=== PATIENT | female | born 1995 | race Caucasian/White ===

== ENCOUNTER 2016-08-27 18:13 | Emergency (ER) | payer MEDICAID, OTHER ==
[~2016-08-27] VITALS: Ht 157.5 cm; Wt 85.0 kg
[~2016-08-27 18:13] MED LIST: VENL150T14 PO
[2016-08-27 18:15] VITALS: BP 118/78; PULSE 124; RESP 20; TEMP 99.9; O2SAT 97
[2016-08-27] MEDS ORDERED: SODIUM CHLOR 0.9% 1000 ML INJ 1,000 ML IV SCH (18:20)
[2016-08-27 18:25] VITALS: BP 132/80; PULSE 115; RESP 16; O2SAT 98
[2016-08-27] MEDS ORDERED: ACETAMINOPHEN 500 MG CPLT PO ONE (18:30)
[2016-08-27] MEDS ORDERED: ONDANSETRON HCL 4 MG/2 ML VIAL IVP ONE (18:30)
[2016-08-27] MEDS ORDERED: SODIUM CHLORIDE 0.9% FLUSH 5 ML FLUSH IVF PRN (18:30)
[2016-08-27] MEDS ORDERED: KETOROLAC TROMETHAMINE 30 MG/ML (IVP) VIAL IVP ONE (18:30)
--- NOTE | 2016-08-27 18:31 | PD ---
HPI Chief Complaint: Cold / Flu Symptoms Time Seen by Provider: 18:19 Travel History International Travel<30 days: No Contact w/Intl Traveler<30days: No Traveled to known affect area: No History of Present Illness HPI 21-year-old female here with complaint of flulike symptoms. Patient states that she has been ill since . Generalized body aches, malaise. Dry nonproductive cough. Over the last 24 hours symptoms have worsened now with small volume urination, right sided flank pain and fevers up to 103. Nausea, no vomiting. No recent travel, sick contacts. Notes a slight amount of radiation of the right flank pain into the right upper quadrant. Denies any known history of hepatobiliary pathology. PFSH Past Medical History Heart Rhythm Problems: Yes (SVT) Cancer: No Cardiovascular Problems: No Diabetes: No Headaches: No Psychiatric: Yes (depression) Seizures: No ?: Not Past Surgical History Surgical History: No Previous Surgery Social History Alcohol Use: Yes Tobacco Use: Yes Substance Use: No Allergies-Medications (Allergen,Severity, Reaction): Uncoded Allergies: PYRETHRIN (Allergy, Severe, ANAPHYLAXIS, 08/27/16) Reported Meds & Prescriptions Reported Meds & Active Scripts Active No Active Prescriptions or Reported Medications Review of Systems Except as stated in HPI: all other systems reviewed are Neg Physical Exam Narrative GENERAL: Young female in no acute distress SKIN: Warm and dry. HEAD: Normocephalic. EYES: No scleral icterus. No injection or drainage. ENT: Mucous membranes pink and moist. NECK: Supple CARDIOVASCULAR: Tachycardic with heart rate in the 110s, regular rhythm. No murmur appreciated. RESPIRATORY: No accessory muscle use. Clear to auscultation. Breath sounds equal bilaterally. GASTROINTESTINAL: Abdomen soft, right sided CVA tenderness with minimal right upper quadrant tenderness to palpation without rebound or guarding MUSCULOSKELETAL: Normal gait NEUROLOGICAL: Awake and alert. Normal speech. PSYCHIATRIC: Appropriate mood and affect; insight and judgment normal. Data Data Last Documented VS Vital Signs Date Time Temp Pulse Resp B/P Pulse Ox O2 Delivery O2 Flow Rate FiO2 08/27/16 18:25 115 16 132/80 98 Room Air 08/27/16 18:15 99.9 Orders Urinalysis - C+S If Indicated (08/27/16 18:20) Influenzae A/B Antigen (08/27/16 18:20) Iv Access Insert/Monitor (08/27/16 18:20) Oximetry (08/27/16 18:20) Ondansetron Inj (Zofran Inj) (08/27/16 18:30) Sodium Chlor 0.9% 1000 Ml Inj (Ns 1000 M (08/27/16 18:20) Sodium Chloride 0.9% Flush (Ns Flush) (08/27/16 18:30) Ketorolac Inj (Toradol Inj) (08/27/16 18:30) Acetaminophen (Tylenol) (08/27/16 18:30) Complete Blood Count With Diff (08/27/16 18:28) Comprehensive Metabolic Panel (08/27/16 18:28) Lipase (08/27/16 18:28) Sodium Chlor 0.9% 1000 Ml Inj (Ns 1000 M (08/27/16 18:45) Labs Laboratory Tests Test 08/27/16 18:35 White Blood Count 3.6 TH/MM3 Red Blood Count 4.95 MIL/MM3 Hemoglobin 15.7 GM/DL Hematocrit 44.5 % Mean Corpuscular Volume 89.9 FL Mean Corpuscular Hemoglobin 31.7 PG Mean Corpuscular Hemoglobin 35.3 % Concent Red Cell Distribution Width 12.7 % Platelet Count 165 TH/MM3 Mean Platelet Volume 10.3 FL Neutrophils (%) (Auto) 44.1 % Lymphocytes (%) (Auto) 43.6 % Monocytes (%) (Auto) 11.2 % Eosinophils (%) (Auto) 0.7 % Basophils (%) (Auto) 0.4 % Neutrophils # (Auto) 1.6 TH/MM3 Lymphocytes # (Auto) 1.6 TH/MM3 Monocytes # (Auto) 0.4 TH/MM3 Eosinophils # (Auto) 0.0 TH/MM3 Basophils # (Auto) 0.0 TH/MM3 CBC Comment DIFF FINAL Differential Comment Urine Color YELLOW Urine Turbidity HAZY Urine pH 5.5 Urine Specific [place] 1.017 Urine Protein NEG mg/dL Urine Glucose (UA) NEG mg/dL Urine Ketones NEG mg/dL Urine Occult Blood SMALL Urine Nitrite NEG Urine Bilirubin NEG Urine Urobilinogen LESS THAN 2.0 MG/DL Urine Leukocyte Esterase NEG Urine RBC 1 /hpf Urine WBC 1 /hpf Urine Squamous Epithelial 6 /hpf Cells Microscopic Urinalysis Comment CULT NOT INDICATED Sodium Level 136 MEQ/L Potassium Level 3.9 MEQ/L Chloride Level 102 MEQ/L Carbon Dioxide Level 28.6 MEQ/L Anion Gap 5 MEQ/L Blood Urea Nitrogen 11 MG/DL Creatinine 1.04 MG/DL Estimat Glomerular Filtration 66 ML/MIN Rate Random Glucose 86 MG/DL Calcium Level 8.3 MG/DL Aspartate Amino Transf 19 U/L (AST/SGOT) Albumin 3.6 GM/DL Lipase 312 U/L [facility] Medical Decision Making Medical Screen Exam Complete: Yes Emergency Medical Condition: Yes Medical Record Reviewed: Yes Differential Diagnosis 21-year-old female here with approximately 2 weeks of generalized body aches, fatigue, dry nonproductive cough worsening over the last 24 hours with right sided flank pain and urinary symptoms. Differential includes viral syndrome, influenza, UTI, pyelonephritis, ureterolithiasis, basilar pneumonia, hepatobiliary pathology, pancreatitis. Narrative Course Patient placed on monitor, IV established and blood obtained. Given 30 mg Toradol, 4 mg Zofran, 2 L normal saline bolus. CBC, CMP, lipase, urinalysis, influenza obtained and pending at the time this dictation. Patient signed out to oncoming provider waiting results of same. Scripts No Active Prescriptions or Reported Meds Jodi Fitzgerald MD Aug 27, 2016 18:31
[2016-08-27] MEDS ORDERED: SODIUM CHLOR 0.9% 1000 ML INJ 1,000 ML IV ONE ×2 (18:45→19:45)
[2016-08-27 18:47] LABS: AUTOMATED NEUTROPHIL # 1.6 TH/MM3 (1.8-7.7); BASOPHIL % 0.4 % (0.0-2.0); EOSINOPHIL % 0.7 % (0.0-4.0); HEMATOCRIT 44.5 % (35.0-46.0); HEMO FLAGS DIFF FINAL; LYMPH % 43.6 % (9.0-44.0); LYMPHOCYTE # 1.6 TH/MM3 (1.0-4.8); MEAN CELL VOLUME 89.9 FL (80.0-100.0); MEAN CORPUSCULAR HEMOGLOBIN 31.7 PG (27.0-34.0); MEAN CORPUSCULAR HGB CONC 35.3 % (32.0-36.0); MONO % 11.2 % (0.0-8.0); NEUT % 44.1 % (16.0-70.0); PLATELET COUNT 165 TH/MM3 (150-450); RED BLOOD COUNT 4.95 MIL/MM3 (4.00-5.30); RED CELL DISTRIBUTION WIDTH 12.7 % (11.6-17.2); WHITE BLOOD COUNT 3.6 TH/MM3 (4.0-11.0)
[2016-08-27 18:49] LABS: BLOOD, URINE SMALL (NEG); COMMENT (UR) CULT NOT INDICATED; CULTURE IF INDICATED CULT NOT INDICATED; GLUCOSE,URINE NEG (NEG); KETONE, URINE NEG (NEG); NITRITE,URINE NEG (NEG); PH, URINE 5.5 (5.0-8.5); SQUAMOUS EPITHELIAL CELL URINE 6 /hpf (0-5); URINE COLOR YELLOW (YELLW/STRAW)
[2016-08-27 19:00] LABS: ANION GAP 5 MEQ/L (5-15); AST (GOT) 19 U/L (15-37); BICARBONATE 28.6 MEQ/L (21.0-32.0); BLOOD UREA NITROGEN 11 MG/DL (7-18); CHLORIDE 102 MEQ/L (98-107); GLOMERULAR FILTRATION RATE 66 ML/MIN (>89); POTASSIUM 3.9 MEQ/L (3.5-5.1); SODIUM (NA) 136 MEQ/L (136-145)
[2016-08-27 19:01] VITALS: BP 133/79; PULSE 104; RESP 18; O2SAT 96
[2016-08-27 19:04] LABS: ALKALINE PHOSPHATASE 61 U/L (45-117); ALT (GPT) 20 U/L (10-53); TOTAL BILIRUBIN ADULT 0.2 MG/DL (0.2-1.0)
--- NOTE | 2016-08-27 19:31 | PD ---
Physical Exam Date Seen by Provider: Aug 27, 2016 Data Data Last Documented VS Vital Signs Date Time Temp Pulse Resp B/P Pulse Ox O2 Delivery O2 Flow Rate FiO2 08/27/16 19:58 80 18 129/70 95 08/27/16 19:01 Room Air 08/27/16 18:15 99.9 Orders Urinalysis - C+S If Indicated (08/27/16 18:20) Influenzae A/B Antigen (08/27/16 18:20) Iv Access Insert/Monitor (08/27/16 18:20) Oximetry (08/27/16 18:20) Ondansetron Inj (Zofran Inj) (08/27/16 18:30) Sodium Chlor 0.9% 1000 Ml Inj (Ns 1000 M (08/27/16 18:20) Sodium Chloride 0.9% Flush (Ns Flush) (08/27/16 18:30) Ketorolac Inj (Toradol Inj) (08/27/16 18:30) Acetaminophen (Tylenol) (08/27/16 18:30) Complete Blood Count With Diff (08/27/16 18:28) Comprehensive Metabolic Panel (08/27/16 18:28) Lipase (08/27/16 18:28) Sodium Chlor 0.9% 1000 Ml Inj (Ns 1000 M (08/27/16 18:45) Ct Abd/Pel W/O Iv Contrast (08/27/16 19:14) Chest, Single Ap (08/27/16 19:14) Ed Urine Pregnancytest Poc (08/27/16 19:14) Labs Laboratory Tests Test 08/27/16 18:35 White Blood Count 3.6 TH/MM3 Red Blood Count 4.95 MIL/MM3 Hemoglobin 15.7 GM/DL Hematocrit 44.5 % Mean Corpuscular Volume 89.9 FL Mean Corpuscular Hemoglobin 31.7 PG Mean Corpuscular Hemoglobin 35.3 % Concent Red Cell Distribution Width 12.7 % Platelet Count 165 TH/MM3 Mean Platelet Volume 10.3 FL Neutrophils (%) (Auto) 44.1 % Lymphocytes (%) (Auto) 43.6 % Monocytes (%) (Auto) 11.2 % Eosinophils (%) (Auto) 0.7 % Basophils (%) (Auto) 0.4 % Neutrophils # (Auto) 1.6 TH/MM3 Lymphocytes # (Auto) 1.6 TH/MM3 Monocytes # (Auto) 0.4 TH/MM3 Eosinophils # (Auto) 0.0 TH/MM3 Basophils # (Auto) 0.0 TH/MM3 CBC Comment DIFF FINAL Differential Comment Urine Color YELLOW Urine Turbidity HAZY Urine pH 5.5 Urine Specific [place] 1.017 Urine Protein NEG mg/dL Urine Glucose (UA) NEG mg/dL Urine Ketones NEG mg/dL Urine Occult Blood SMALL Urine Nitrite NEG Urine Bilirubin NEG Urine Urobilinogen LESS THAN 2.0 MG/DL Urine Leukocyte Esterase NEG Urine RBC 1 /hpf Urine WBC 1 /hpf Urine Squamous Epithelial 6 /hpf Cells Microscopic Urinalysis Comment CULT NOT INDICATED Sodium Level 136 MEQ/L Potassium Level 3.9 MEQ/L Chloride Level 102 MEQ/L Carbon Dioxide Level 28.6 MEQ/L Anion Gap 5 MEQ/L Blood Urea Nitrogen 11 MG/DL Creatinine 1.04 MG/DL Estimat Glomerular Filtration 66 ML/MIN Rate Random Glucose 86 MG/DL Calcium Level 8.3 MG/DL Total Bilirubin 0.2 MG/DL Aspartate Amino Transf 19 U/L (AST/SGOT) Alanine Aminotransferase 20 U/L (ALT/SGPT) Alkaline Phosphatase 61 U/L Total Protein 7.6 GM/DL Albumin 3.6 GM/DL Lipase 312 U/L MDM Supervised Visit with WILLY: No Interpretation(s) Vital Signs Date Time Temp Pulse Resp B/P Pulse Ox O2 Delivery O2 Flow Rate FiO2 08/27/16 19:01 104 18 133/79 96 Room Air 08/27/16 18:25 115 16 132/80 98 Room Air 08/27/16 18:15 99.9 124 20 118/78 97 Room Air Laboratory Tests Test 08/27/16 18:35 White Blood Count 3.6 TH/MM3 (4.0-11.0) Red Blood Count 4.95 MIL/MM3 (4.00-5.30) Hemoglobin 15.7 GM/DL (11.6-15.3) Hematocrit 44.5 % (35.0-46.0) Mean Corpuscular Volume 89.9 FL (80.0-100.0) Mean Corpuscular Hemoglobin 31.7 PG (27.0-34.0) Mean Corpuscular Hemoglobin 35.3 % Concent (32.0-36.0) Red Cell Distribution Width 12.7 % (11.6-17.2) Platelet Count 165 TH/MM3 (150-450) Mean Platelet Volume 10.3 FL (7.0-11.0) Neutrophils (%) (Auto) 44.1 % (16.0-70.0) Lymphocytes (%) (Auto) 43.6 % (9.0-44.0) Monocytes (%) (Auto) 11.2 % (0.0-8.0) Eosinophils (%) (Auto) 0.7 % (0.0-4.0) Basophils (%) (Auto) 0.4 % (0.0-2.0) Neutrophils # (Auto) 1.6 TH/MM3 (1.8-7.7) Lymphocytes # (Auto) 1.6 TH/MM3 (1.0-4.8) Monocytes # (Auto) 0.4 TH/MM3 (0-0.9) Eosinophils # (Auto) 0.0 TH/MM3 (0-0.4) Basophils # (Auto) 0.0 TH/MM3 (0-0.2) CBC Comment DIFF FINAL Differential Comment Urine Color YELLOW (YELLW/STRAW) Urine Turbidity HAZY (CLEAR) Urine pH 5.5 (5.0-8.5) Urine Specific [place] 1.017 (1.002-1.035) Urine Protein NEG mg/dL (NEG-TRACE) Urine Glucose (UA) NEG mg/dL (NEG) Urine Ketones NEG mg/dL (NEG) Urine Occult Blood SMALL (NEG) Urine Nitrite NEG (NEG) Urine Bilirubin NEG (NEG) Urine Urobilinogen LESS THAN 2.0 MG/DL (LESS THAN 2.0) Urine Leukocyte Esterase NEG (NEG) Urine RBC 1 /hpf (0-3) Urine WBC 1 /hpf (0-5) Urine Squamous Epithelial 6 /hpf (0-5) Cells Microscopic Urinalysis Comment CULT NOT INDICATED Sodium Level 136 MEQ/L (136-145) Potassium Level 3.9 MEQ/L (3.5-5.1) Chloride Level 102 MEQ/L (98-107) Carbon Dioxide Level 28.6 MEQ/L (21.0-32.0) Anion Gap 5 MEQ/L (5-15) Blood Urea Nitrogen 11 MG/DL (7-18) Creatinine 1.04 MG/DL (0.50-1.00) Estimat Glomerular Filtration 66 ML/MIN (>89) Rate Random Glucose 86 MG/DL (74-106) Calcium Level 8.3 MG/DL (8.5-10.1) Total Bilirubin 0.2 MG/DL (0.2-1.0) Aspartate Amino Transf 19 U/L (15-37) (AST/SGOT) Alanine Aminotransferase 20 U/L (10-53) (ALT/SGPT) Alkaline Phosphatase 61 U/L (45-117) Total Protein 7.6 GM/DL (6.4-8.2) Albumin 3.6 GM/DL (3.4-5.0) Lipase 312 U/L (73-393) Laboratory Tests Test 08/27/16 18:35 White Blood Count 3.6 TH/MM3 (4.0-11.0) Red Blood Count 4.95 MIL/MM3 (4.00-5.30) Hemoglobin 15.7 GM/DL (11.6-15.3) Hematocrit 44.5 % (35.0-46.0) Mean Corpuscular Volume 89.9 FL (80.0-100.0) Mean Corpuscular Hemoglobin 31.7 PG (27.0-34.0) Mean Corpuscular Hemoglobin 35.3 % Concent (32.0-36.0) Red Cell Distribution Width 12.7 % (11.6-17.2) Platelet Count 165 TH/MM3 (150-450) Mean Platelet Volume 10.3 FL (7.0-11.0) Neutrophils (%) (Auto) 44.1 % (16.0-70.0) Lymphocytes (%) (Auto) 43.6 % (9.0-44.0) Monocytes (%) (Auto) 11.2 % (0.0-8.0) Eosinophils (%) (Auto) 0.7 % (0.0-4.0) Basophils (%) (Auto) 0.4 % (0.0-2.0) Neutrophils # (Auto) 1.6 TH/MM3 (1.8-7.7) Lymphocytes # (Auto) 1.6 TH/MM3 (1.0-4.8) Monocytes # (Auto) 0.4 TH/MM3 (0-0.9) Eosinophils # (Auto) 0.0 TH/MM3 (0-0.4) Basophils # (Auto) 0.0 TH/MM3 (0-0.2) CBC Comment DIFF FINAL Differential Comment Urine Color YELLOW (YELLW/STRAW) Urine Turbidity HAZY (CLEAR) Urine pH 5.5 (5.0-8.5) Urine Specific [place] 1.017 (1.002-1.035) Urine Protein NEG mg/dL (NEG-TRACE) Urine Glucose (UA) NEG mg/dL (NEG) Urine Ketones NEG mg/dL (NEG) Urine Occult Blood SMALL (NEG) Urine Nitrite NEG (NEG) Urine Bilirubin NEG (NEG) Urine Urobilinogen LESS THAN 2.0 MG/DL (LESS THAN 2.0) Urine Leukocyte Esterase NEG (NEG) Urine RBC 1 /hpf (0-3) Urine WBC 1 /hpf (0-5) Urine Squamous Epithelial 6 /hpf (0-5) Cells Microscopic Urinalysis Comment CULT NOT INDICATED Sodium Level 136 MEQ/L (136-145) Potassium Level 3.9 MEQ/L (3.5-5.1) Chloride Level 102 MEQ/L (98-107) Carbon Dioxide Level 28.6 MEQ/L (21.0-32.0) Anion Gap 5 MEQ/L (5-15) Blood Urea Nitrogen 11 MG/DL (7-18) Creatinine 1.04 MG/DL (0.50-1.00) Estimat Glomerular Filtration 66 ML/MIN (>89) Rate Random Glucose 86 MG/DL (74-106) Calcium Level 8.3 MG/DL (8.5-10.1) Total Bilirubin 0.2 MG/DL (0.2-1.0) Aspartate Amino Transf 19 U/L (15-37) (AST/SGOT) Alanine Aminotransferase 20 U/L (10-53) (ALT/SGPT) Alkaline Phosphatase 61 U/L (45-117) Total Protein 7.6 GM/DL (6.4-8.2) Albumin 3.6 GM/DL (3.4-5.0) Lipase 312 U/L (73-393) Last Impressions Chest X-Ray [id number]/27/[id number] Signed Impressions: Service Date/Time: Saturday, August 27, 2016 19:16 - CONCLUSION: No acute disease. Henok Green MD Abdomen/Pelvis CT [id number]/27/[id number] Signed Impressions: Service Date/Time: Saturday, August 27, 2016 19:39 - CONCLUSION: Possible miniscule right kidney stone. Otherwise negative Henok Green MD Differential Diagnosis PLEASE SEE PREVIOUS PROVIDER'S CHART Narrative Course Patient was signed out to me by Dr. Meyer, patient pending CMP and re-evaluation Patient is a 21-year-old female who presents to emergency room with complaints of URI symptoms with increased cough congestion and fevers since August 11. Patient reports that she has been having increased fevers and chills and achy bodies, reports that she has a nonproductive cough. Reports that her family members are sick with similar symptoms, reports concern as she was feeling better a few days ago but began to have return of symptoms and was concerned for rebound infection. Reports that over the course of 24 hours, she's had decreased urine output. Reports that she has tried to drink as much fluids as she possibly can, reports that she has tolerated Gatorade. Reports increased pain to her right upper quadrant and right flank for the past few days. Denies dysuria, urinary urgency or frequency. Denies any recent travels or trips. Reports no other complaints. Upon arrival to the emergency room, patient had a temperature of 99.9, pulse rate of 124, after rehydration (1liter of IVF), patient's heart rate now 104. CBC: WBC 3.6 Hemoglobin 15.7 Hematocrit 44.5 Platelets 165 BMP: Sodium 136 Chloride 102 Potassium 3.9 Carbon dioxide 28.6 BUN 11 Creatinine 1.04 LFTs: WNL Influenza A and B Urinalysis shows hazy yellow urine, small occult blood, negative leuk esterase, 1 white blood cell, negative nitrites Patient reports that overall, she is feeling much better. Reports that she continues to have right-sided flank pain. Discussed with patient plan to obtain CT of abdomen and pelvis for evaluation of possible kidney stone. Chest x-ray: No acute disease CT abdomen and pelvis: Possible meniscal right kidney stone otherwise negative A copy patient's CT report was given to patient. Patient feeling much better. Reviewed all labs and all studies with patient in detail. Patient will follow up with her primary care doctor and return to ER as needed. Patient thankful for care. Signs and symptoms of when to return to emergency room reviewed with patient. Diagnosis Primary Impression: UTI (urinary tract infection) Qualified Code: N30.01 - Acute cystitis with hematuria Additional Impressions: Viral syndrome Dehydration Patient Instructions: General Instructions Departure Forms: Tests/Procedures, Work Release Enter return to work date: Aug 29, 2016 Additional Instruction: Please return to ER as needed Please follow-up with primary care doctor Please bring a copy of your discharge summary as well as your ultrasound report to doctor's office for follow-up Please drink plenty of fluids and stay hydrated Med/Other Pt SpecificInfo: Prescription(s) given Scripts Ibuprofen 600 Mg [id number] Mg PO Q6H PRN (Pain/Inflammation) #40 TAB Ref 0 Prov:Catalina Becker DO 08/27/16 Nitrofurantoin Monohydrate Macrocrystals (Macrobid)100 Mg [id number] Mg PO BID 10 Days Ref 0 Prov:Catalina Becker DO 08/27/16 Disposition: 01 DISCHARGE HOME Condition: Stable Catalina Becker DO Aug 27, 2016 19:31
--- NOTE | 2016-08-27 19:43 | RADRPT ---
EXAM DATE/TIME: 08/27/2016 19:16 [facility] COMPARISON: No previous studies available for comparison. INDICATIONS : Cough MEDICAL HISTORY : SVT SURGICAL HISTORY : None. ENCOUNTER: Initial ACUITY: 3 weeks PAIN SCORE: 7/10 LOCATION: Bilateral chest FINDINGS: A single view of the chest demonstrates the lungs to be symmetrically aerated without evidence of mas s, infiltrate or effusion. The cardiomediastinal contours are unremarkable. Osseous structures are intact. CONCLUSION: No acute disease. Henok Green MD on August 27, 2016 at 19:42 Board Certified Radiologist. This report was verified electronically.
--- NOTE | 2016-08-27 19:56 | RADRPT ---
EXAM DATE/TIME: 08/27/2016 19:39 [facility] COMPARISON: No previous studies available for comparison. INDICATIONS : Right sided flank pain with fever. ORAL CONTRAST: No oral contrast ingested. RADIATION DOSE: 12.25 CTDIvol (mGy) MEDICAL HISTORY : None SURGICAL HISTORY : None. ENCOUNTER: Initial ACUITY: 1 day PAIN SCALE: 4/10 LOCATION: Right flank TECHNIQUE: Volumetric scanning of the abdomen and pelvis was performed. Using automated exposure control and ad justment of the mA and/or kV according to patient size, radiation dose was kept as low as reasonably achievable to obtain optimal diagnostic quality images. FINDINGS: LOWER LUNGS: The visualized lower lungs are clear. LIVER: Homogeneous density without lesion. There is no dilation of the biliary tree. No calcified gallston es. SPLEEN: Normal size without lesion. PANCREAS: Within normal limits. KIDNEYS: There may be a miniscule calculus in the medial pole region of the right kidney, one or 2 mm in size. No evidence of hydronephrosis. No evidence of ureteral stone or dilatation. ADRENAL GLANDS: Within normal limits. VASCULAR: There is no aortic aneurysm. BOWEL/MESENTERY: The stomach, small bowel, and colon demonstrate no acute abnormality. There is no free intraperitone al air or fluid. ABDOMINAL WALL: Within normal limits. RETROPERITONEUM: There is no lymphadenopathy. BLADDER: No wall thickening or mass. REPRODUCTIVE: Within normal limits. INGUINAL: There is no lymphadenopathy or hernia. MUSCULOSKELETAL: Within normal limits for patient age. CONCLUSION: Possible miniscule right kidney stone. Otherwise negative Henok Green MD on August 27, 2016 at 19:52 Board Certified Radiologist. This report was verified electronically.
[2016-08-27 19:58] VITALS: BP 129/70; PULSE 80; RESP 18; O2SAT 95
[2016-08-27] MEDS ORDERED: IBUP-232 PO (20:08)
[2016-08-27] MEDS ORDERED: MACR100C2 PO (20:08)
[2016-08-27 20:44] VITALS: BP 107/58
== END 2016-08-27 20:57 | disposition home or self-care (01) ==
LOC: NEPC 18:13
DX: N30.01 Acute cystitis with hematuria (principal); B34.9 Viral infection, unspecified; E86.0 Dehydration; M79.1 Myalgia; R05 Cough; R50.9 Fever, unspecified; R10.11 Right upper quadrant pain; Z86.79 Personal history of other diseases of the circulatory system; Z72.0 Tobacco use
CPT/HCPCS: 71010; 74176; 80053; 81001; 83690; 84703; 85025; 87804; 96361; 96374; 96375; 99284; J1885; J2405; J7030

== ENCOUNTER 2016-12-27 19:46 | Emergency (ER) | payer OTHER ==
[~2016-12-27] VITALS: Ht 157.5 cm; Wt 85.0 kg
[~2016-12-27 19:46] MED LIST changes: +IBUP-232 PO; +MACR100C2 PO; -VENL150T14 PO
[2016-12-27 19:49] VITALS: BP 142/86; PULSE 98; RESP 15; TEMP 98.6; O2SAT 98
[2016-12-27 20:41] VITALS: BP 122/75; PULSE 95; RESP 20; O2SAT 98
[2016-12-27 20:59] VITALS: BP 122/75; PULSE 95; RESP 20; O2SAT 98
[2016-12-27] MEDS ORDERED: SODIUM CHLOR 0.9% 1000 ML INJ 1,000 ML IV ONE (21:00)
[2016-12-27] MEDS ORDERED: KETOROLAC TROMETHAMINE 30 MG/ML (IVP) VIAL IV PUSH ONE (21:00)
[2016-12-27 21:26] LABS: BASOPHIL % 0.6 % (0.0-2.0); EOSINOPHIL # 0.1 TH/MM3 (0-0.4); EOSINOPHIL % 1.8 % (0.0-4.0); HEMO FLAGS DIFF FINAL; LYMPH % 38.6 % (9.0-44.0); LYMPHOCYTE # 2.4 TH/MM3 (1.0-4.8); MEAN CELL VOLUME 90.4 FL (80.0-100.0); MEAN CORPUSCULAR HGB CONC 35.4 % (32.0-36.0); MONO % 9.3 % (0.0-8.0); NEUT % 49.7 % (16.0-70.0); PLATELET COUNT 247 TH/MM3 (150-450); RED BLOOD COUNT 4.87 MIL/MM3 (4.00-5.30); RED CELL DISTRIBUTION WIDTH 12.1 % (11.6-17.2); WHITE BLOOD COUNT 6.1 TH/MM3 (4.0-11.0)
[2016-12-27 21:43] LABS: BLOOD, URINE MOD (NEG); CALCIUM OXALATE CRYSTALS,URINE FEW /hpf; COMMENT (UR) CULT NOT INDICATED; CULTURE IF INDICATED CULT NOT INDICATED; GLUCOSE,URINE NEG (NEG); KETONE, URINE NEG (NEG); MUCUS URINE FEW /lpf (OCC); NITRITE,URINE NEG (NEG); PH, URINE 7.5 (5.0-8.5); SQUAMOUS EPITHELIAL CELL URINE 6 /hpf (0-5); URINE COLOR YELLOW (YELLW/STRAW)
[2016-12-27 22:01] LABS: ALKALINE PHOSPHATASE 55 U/L (45-117); ALT (GPT) 23 U/L (10-53); ANION GAP 9 MEQ/L (5-15); AST (GOT) 19 U/L (15-37); BICARBONATE 26.3 MEQ/L (21.0-32.0); BLOOD UREA NITROGEN 11 MG/DL (7-18); CHLORIDE 104 MEQ/L (98-107); GLOMERULAR FILTRATION RATE 61 ML/MIN (>89); SODIUM (NA) 139 MEQ/L (136-145); TOTAL BILIRUBIN ADULT 0.4 MG/DL (0.2-1.0)
--- NOTE | 2016-12-27 22:21 | RADRPT ---
EXAM DATE/TIME: 12/27/2016 21:08 [facility] COMPARISON: No previous studies available for comparison. INDICATIONS : Pelvic pain. MEDICAL HISTORY : SVT. Ovarian cysts rupture. Depression. [place] suicide attempt. SURGICAL HISTORY : None. ENCOUNTER: Initial ACUITY: 1 day PAIN SCORE: 5/10 LOCATION: Bilateral pelvis MEASUREMENTS: UTERUS: 6.2 x 3.3 x 2.8 cm ENDOMETRIAL STRIPE: 3 mm RIGHT OVARY: 2.5 x 2.2 x 1.5 cm LEFT OVARY: 2.0 x 2.1 x 2.4 cm FINDINGS: UTERUS: The myometrium has homogeneous echotexture without mass. RIGHT OVARY: Ovary contains no mass or significant cystic lesion. LEFT OVARY: Ovary contains no mass or significant cystic lesion. MISCELLANEOUS: No free fluid. CONCLUSION: Normal examination. Henok Green MD on December 27, 2016 at 22:18 Board Certified Radiologist. This report was verified electronically.
--- NOTE | 2016-12-27 22:36 | PD ---
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 She says she woke up with the pain this morning, and it feels like "carpet tacks" poking her. She says she started her period again today, she had a period 2 weeks ago and 2 weeks prior to that. She says she has occasionally had a period twice in a month, but never this often. Her bleeding is been very light so far. She had some nausea and vomiting earlier today, but feels better and is able to drink water without vomiting now. She denies fever or chills. She says she is moving her bowels normally. PFSH Past Medical History Heart Rhythm Problems: Yes (SVT) Cancer: No Cardiovascular Problems: Yes (SVT) Diabetes: No Headaches: No Psychiatric: Yes (depression) Seizures: No Tetanus Vaccination: > 5 Years Influenza Vaccination: No ?: Unknown LMP: CURRENT : 1 Miscarriage: 1 Ovarian Cysts: Yes (RUPTURED) Past Surgical History Surgical History: No Previous Surgery Social History Alcohol Use: Yes (OCCASIONALLY) Tobacco Use: Yes (1/2 PPD) Substance Use: No Allergies-Medications (Allergen,Severity, Reaction): Uncoded Allergies: PYRETHRIN (Allergy, Severe, ANAPHYLAXIS, 08/27/16) Reported Meds & Prescriptions Reported Meds & Active Scripts Active No Active Prescriptions or Reported Medications Review of Systems Except as stated in HPI: all other systems reviewed are Neg General / Constitutional: No: Fever, Chills HENT: No: Headaches Cardiovascular: No: Chest Pain or Discomfort Respiratory: No: Shortness of Breath Gastrointestinal: Positive: Nausea, Vomiting, Abdominal Pain Genitourinary: Positive: Vaginal Bleeding, No: Dysuria Skin: No Rash, No Change in Pigmentation Neurologic: No: Weakness, Dizziness Physical Exam Narrative GENERAL: Awake and alert, in no acute distress. SKIN: Focused skin assessment warm/dry. HEAD: Atraumatic. Normocephalic. EYES: Pupils equal and round. No scleral icterus. ENT: No nasal bleeding or discharge. Mucous membranes pink and moist. NECK: Trachea midline. No JVD. CARDIOVASCULAR: Regular rate and rhythm. No murmur appreciated. RESPIRATORY: No accessory muscle use. Clear to auscultation. Breath sounds equal bilaterally. GASTROINTESTINAL: Abdomen soft, nondistended. Tender to palpation of the left lower quadrant. No rebound or guarding. : Exam performed in presence of female nurse, Diane. Exam shows minimal bleeding, no cervical lesions, no CMT. MUSCULOSKELETAL: No obvious deformities. No clubbing. No cyanosis. No edema. NEUROLOGICAL: Awake and alert. No obvious cranial nerve deficits. Motor grossly within normal limits. Normal speech. PSYCHIATRIC: Appropriate mood and affect; insight and judgment normal. Data Data Last Documented VS Vital Signs Date Time Temp Pulse Resp B/P Pulse Ox O2 Delivery O2 Flow Rate FiO2 12/27/16 20:59 95 20 122/75 98 Room Air 12/27/16 19:49 98.6 Orders Complete Blood Count With Diff (12/27/16 20:54) Comprehensive Metabolic Panel (12/27/16 20:54) Wet Prep Profile (12/27/16 20:54) Gc And Chlamydia Pcr (12/27/16 20:54) Us Pelvis Comp Personal Financial Planner/Non-Preg (12/27/16 ) Sodium Chlor 0.9% 1000 Ml Inj (Ns 1000 M (12/27/16 21:00) Ketorolac Inj (Toradol Inj) (12/27/16 21:00) Urinalysis - C+S If Indicated (12/27/16 20:54) Ed Urine Pregnancytest Poc (12/27/16 20:54) Labs Laboratory Tests Test 12/27/16 21:00 White Blood Count 6.1 TH/MM3 Red Blood Count 4.87 MIL/MM3 Hemoglobin 15.6 GM/DL Hematocrit 44.0 % Mean Corpuscular Volume 90.4 FL Mean Corpuscular Hemoglobin 32.0 PG Mean Corpuscular Hemoglobin 35.4 % Concent Red Cell Distribution Width 12.1 % Platelet Count 247 TH/MM3 Mean Platelet Volume 10.0 FL Neutrophils (%) (Auto) 49.7 % Lymphocytes (%) (Auto) 38.6 % Monocytes (%) (Auto) 9.3 % Eosinophils (%) (Auto) 1.8 % Basophils (%) (Auto) 0.6 % Neutrophils # (Auto) 3.0 TH/MM3 Lymphocytes # (Auto) 2.4 TH/MM3 Monocytes # (Auto) 0.6 TH/MM3 Eosinophils # (Auto) 0.1 TH/MM3 Basophils # (Auto) 0.0 TH/MM3 CBC Comment DIFF FINAL Differential Comment Urine Color YELLOW Urine Turbidity CLOUDY Urine pH 7.5 Urine Specific [place] 1.018 Urine Protein NEG mg/dL Urine Glucose (UA) NEG mg/dL Urine Ketones NEG mg/dL Urine Occult Blood MOD Urine Nitrite NEG Urine Bilirubin NEG Urine Urobilinogen LESS THAN 2.0 MG/DL Urine Leukocyte Esterase NEG Urine RBC 1 /hpf Urine Squamous Epithelial 6 /hpf Cells Urine Calcium Oxalate Crystals FEW /hpf Urine Amorphous Sediment RARE Urine Mucus FEW /lpf Microscopic Urinalysis Comment CULT NOT INDICATED Clue Cells (Wet Prep) NONE SEEN Vaginal Trichomonas (Wet Prep) NONE SEEN Vaginal Yeast (Wet Prep) NONE SEEN Sodium Level 139 MEQ/L Potassium Level 4.0 MEQ/L Chloride Level 104 MEQ/L Carbon Dioxide Level 26.3 MEQ/L Anion Gap 9 MEQ/L Blood Urea Nitrogen 11 MG/DL Creatinine 1.11 MG/DL Estimat Glomerular Filtration 61 ML/MIN Rate Random Glucose 78 MG/DL Calcium Level 9.4 MG/DL Total Bilirubin 0.4 MG/DL Aspartate Amino Transf 19 U/L (AST/SGOT) Alanine Aminotransferase 23 U/L (ALT/SGPT) Alkaline Phosphatase 55 U/L Total Protein 7.7 GM/DL Albumin 3.7 GM/DL [facility] Medical Decision Making Medical Screen Exam Complete: Yes Emergency Medical Condition: Yes Differential Diagnosis UTI versus menstrual cramps versus ovarian cyst versus DVT versus GC/Chlamydia Narrative Course Patient is a 21-year-old female comes in complaining of left lower quadrant abdominal pain. Exam shows tenderness to the left lower quadrant. IV established, labs sent. Labs show no acute abnormalities. Patient given Toradol. Ultrasound of the pelvis performed shows no acute abnormalities. Patient advised to take naproxen at home as needed for pain. Advised follow-up with LEATHER WORKER. She is requesting Zofran in case her nausea returns, we will provide prescription. Advised to return to the ED as needed for any worsening symptoms. Diagnosis Primary Impression: Pelvic pain Patient Instructions: General Instructions, Pelvic Pain in Women (ED) Additional Instructions: Take Naproxen as needed for pain. You can take Zofran for nausea. Follow up with bag machine set up operator. Return to the ED as needed for any worsening symptoms. Scripts Ondansetron Odt (Zofran Odt)4 Mg Tab4 Mg SL Q6HR PRN (Nausea/Vomiting) #7 TAB Ref 0 Prov:Renée Luke MD 12/27/16 Disposition: 01 DISCHARGE HOME Condition: Stable Renée Luke MD December 27, 2016 22:36
[2016-12-27] MEDS ORDERED: ZOFR4TAB3 SL (22:41)
[2016-12-27 23:12] LABS: CHLAMYDIA PCR NOT DETECTED (NOT DETECT); NEISSERIA PCR NOT DETECTED (NOT DETECT)
== END 2016-12-27 22:57 | disposition home or self-care (01) ==
LOC: NEPD 19:46
DX: R10.2 Pelvic and perineal pain (principal)
CPT/HCPCS: 76856; 80053; 81001; 84703; 85025; 87210; 87491; 87591; 96361; 96374; 99284; J1885; J7030

== ENCOUNTER 2017-05-02 15:52 | Emergency (ER) | payer OTHER ==
[~2017-05-02] VITALS: Ht 157.5 cm; Wt 75.0 kg
[~2017-05-02 15:52] MED LIST changes: -IBUP-232 PO; -MACR100C2 PO; +ZOFR4TAB3 SL
[2017-05-02 15:53] VITALS: BP 128/72; PULSE 114; RESP 20; TEMP 99.3; O2SAT 98
--- NOTE | 2017-05-02 17:42 | PD ---
HPI Chief Complaint: Respiratory Symptoms Time Seen by Provider: 17:42 Travel History International Travel<30 days: No Contact w/Intl Traveler<30days: No Traveled to known affect area: No History of Present Illness HPI 21 YO F presents to the ED for evaluation of 5 day history of nonproductive cough. Patient also endorses chills, clear rhinorrhea, sore throat, nausea. She denies ear pain, chest pain, shortness of breath, abdominal pain. She states that several people in her office have had similar symptoms after her boss was diagnosed with bronchitis. No treatment at home. PFSH Past Medical History Heart Rhythm Problems: Yes (SVT) Cancer: No Cardiovascular Problems: Yes (SVT) Diabetes: No Headaches: No Psychiatric: Yes (depression) Seizures: No ?: Not : 1 Miscarriage: 1 Ovarian Cysts: Yes (RUPTURED) Social History Alcohol Use: Yes (OCCASIONALLY) Tobacco Use: Yes (1/2 PPD) Substance Use: No Allergies-Medications (Allergen,Severity, Reaction): Uncoded Allergies: PYRETHRIN (Allergy, Severe, ANAPHYLAXIS, 08/27/16) Reported Meds & Prescriptions Reported Meds & Active Scripts Active Flonase Nasal Ivins (Fluticasone Nasal Ivins) 50 Mcg/Act Ivins 50 Mcg EACH NARE BID Tessalon Perles (Benzonatate) 100 Mg Cap 200 Mg PO TID PRN Azithromycin 250 Mg Tab 250 Mg PO DIRECTED Take 2 tabs (500 mg) on day 1 then 1 tab daily x 4 days. Review of Systems Except as stated in HPI: all other systems reviewed are Neg Physical Exam Narrative GENERAL: Well-nourished, well-developed , ill-appearing white female in no acute distress. SKIN: Warm and dry. HEAD: Normocephalic. Atraumatic. EYES: No scleral icterus. No injection or drainage. PERRLA. EOMI. ENT: Pearly trujillo tympanic membranes bilaterally. Nasal mucosa is moist. Oropharynx, erythematous. No edema or exudate. Uvula midline. Airway patent. NECK: Supple, trachea midline. No JVD or lymphadenopathy. CARDIOVASCULAR: Regular rate and rhythm without murmurs, gallops, or rubs. RESPIRATORY: Breath sounds clear and equal bilaterally. No accessory muscle use. GASTROINTESTINAL: Abdomen soft, non-tender, nondistended. + Bowel sounds MUSCULOSKELETAL: No cyanosis, or edema. Walks with a normal gait. BACK: Nontender without obvious deformity. No CVA tenderness. Data Data Last Documented VS Vital Signs Date Time Temp Pulse Resp B/P (MAP) Pulse Ox O2 Delivery O2 Flow Rate FiO2 05/02/17 19:32 05/02/17 19:18 93 18 95 Room Air 05/02/17 15:53 99.3 Orders Orders Influenzae A/B Antigen (05/02/17 17:42) Group A Rapid Strep Screen (05/02/17 17:42) Chest, Single Ap (05/02/17 ) Strep Culture (Group A) (05/02/17 18:25) Acetaminophen (Tylenol) (05/02/17 19:30) MDM Medical Decision Making Medical Screen Exam Complete: Yes Emergency Medical Condition: Yes Differential Diagnosis Viral syndrome versus pharyngitis versus strep pharyngitis versus influenza versus less likely pneumonia versus other Narrative Course 21 YO F presents to the ED for evaluation of 5 day history of nonproductive cough. Patient also endorses chills, clear rhinorrhea, sore throat, nausea. She denies ear pain, chest pain, shortness of breath, abdominal pain. She states that several people in her office have had similar symptoms after her boss was diagnosed with bronchitis. No treatment at home. Vitals reviewed, temp 99.3, heart rate 114, improved to 93 in the exam room. Physical exam reveals an ill-appearing white female in no acute distress. The ENT exam is unremarkable. Chest is clear to auscultation bilaterally. Patient was administered dose of Tylenol. Rapid strep and flu swabs negative. Chest x-ray reveals no acute cardiopulmonary process. I suspect this is an upper respiratory infection. Discussed the results of the workup with the patient. Prescribed azithromycin, Tessalon Perles, Flonase. She is instructed to take the medications as prescribed, continue symptomatic care with OTC Tylenol and Motrin. She was provided with a note for work. We discussed reasons to return to the ED. Patient indicated understanding of instructions and is agreeable to the care plan. She is stable and discharged home. Diagnosis Primary Impression: Upper respiratory infection with cough and congestion Referrals: Primary Care Physician Patient Instructions: General Instructions, Viral Syndrome (ED) Additional Instructions: Rest, hydrate. Push fluids such as sports drinks, Pedialyte, popsicles, clear broth. Take Azithromycin as prescribed. Continue with symptomatic treatment. Alternating Motrin and Tylenol every 4-6 hours as needed for continued fever. Increase handwashing frequently to avoid the spread of the virus to other family members and the community. Replace toothbrush at the end of this illness. Follow-up with the primary care provider this week. Return to the ED for any urgent or emergent medical condition. Med/Other Pt SpecificInfo: Prescription(s) given Scripts Fluticasone Nasal Ivins (Flonase Nasal Ivins) 50 Mcg/Act Ivins 50 MCG EACH NARE BID for Allergies, #1 BOTTLE 0 Refills Prov: Cecile Mosley MD 05/02/17 Benzonatate (Tessalon Perles) 100 Mg Cap 200 MG PO TID Y for COUGH, #20 CAP 0 Refills Prov: Cecile Mosley MD 05/02/17 Azithromycin (Azithromycin) 250 Mg Tab 250 MG PO DIRECTED for Infection, #6 TAB 0 Refills Take 2 tabs (500 mg) on day 1 then 1 tab daily x 4 days. Prov: Cecile Mosley MD 05/02/17 Disposition: 01 DISCHARGE HOME Condition: Stable Courtney Horner May 02, 2017 17:42
--- NOTE | 2017-05-02 18:34 | RADRPT ---
EXAM DATE/TIME: 05/02/2017 18:20 [facility] COMPARISON: CHEST SINGLE AP, August 27, 2016, 19:16. INDICATIONS : Fever and cough for several days. MEDICAL HISTORY : None. SURGICAL HISTORY : None. ENCOUNTER: Initial ACUITY: 3 days PAIN SCORE: 0/10 LOCATION: Bilateral chest FINDINGS: A single view of the chest demonstrates the lungs to be symmetrically aerated without evidence of mas s, infiltrate or effusion. The cardiomediastinal contours are unremarkable. Osseous structures are intact. CONCLUSION: Normal one view chest x-ray. Henok Andersen MD on May 02, 2017 at 18:32 Board Certified Radiologist. This report was verified electronically.
[2017-05-02 19:18] VITALS: BP 104/65; PULSE 93; RESP 18; O2SAT 95
[2017-05-02] MEDS ORDERED: AZIT250T3 PO (19:21)
[2017-05-02] MEDS ORDERED: FLUT1SPR5 EACH NARE (19:21)
[2017-05-02] MEDS ORDERED: BENZ100 PO (19:21)
[2017-05-02] MEDS ORDERED: ACETAMINOPHEN 325 MG TAB PO ONE (19:30)
== END 2017-05-02 19:44 | disposition home or self-care (01) ==
LOC: NEPC 15:52
DX: J06.9 Acute upper respiratory infection, unspecified (principal); F17.200 Nicotine dependence, unspecified, uncomplicated
CPT/HCPCS: 71010; 87081; 87804; 87880; 99284

== ENCOUNTER 2017-05-10 17:16 | Emergency (ER) | payer OTHER ==
[~2017-05-10] VITALS: Ht 162.6 cm; Wt 80.0 kg
[~2017-05-10 17:16] MED LIST changes: +AZIT250T3 PO; +BENZ100 PO; +FLUT1SPR5 EACH NARE; -ZOFR4TAB3 SL
[2017-05-10] MEDS ORDERED: SODIUM CHLOR 0.9% 1000 ML INJ 1,000 ML IV SCH (17:25)
[2017-05-10] MEDS ORDERED: SODIUM CHLORIDE 0.9% FLUSH 10 ML FLUSH IV FLUSH PRN (17:30)
[2017-05-10] MEDS ORDERED: RESP: LIDOCAINE HCL 2% 2 ML NEB NEB ONE (17:30)
[2017-05-10] MEDS ORDERED: diphenhydrAMINE HCL 50 MG/ML VIAL IM ONE (17:30)
[2017-05-10] MEDS ORDERED: methylPREDNISolone SOD SUCC 125 MG/2 ML VIAL IV PUSH ONE (17:30)
--- NOTE | 2017-05-10 17:36 | PD ---
HPI Chief Complaint: Cough/SOB Time Seen by Provider: 17:25 Travel History International Travel<30 days: No Contact w/Intl Traveler<30days: No History of Present Illness HPI Patient is a 22-year-old female presents emergency room cough and shortness of breath. Patient with dry cough limiting her history on initial evaluation states that they were spraying her apartment complex with bug spray which she is allergic to. States symptoms started just prior to arrival, moderate in severity, associated with shortness of breath no chest pain no fever. PFSH Past Medical History Heart Rhythm Problems: Yes (SVT) Cancer: No Cardiovascular Problems: Yes (SVT) Diabetes: No Diminished Hearing: No Headaches: No Psychiatric: Yes (depression) Seizures: Yes (FOCAL UPPEER EXTREMITIES NO LOC ) : 1 Para: 0 Miscarriage: 1 : 0 Ovarian Cysts: Yes (RUPTURED) Social History Alcohol Use: Yes (OCCASIONALLY) Tobacco Use: Yes (1/2 PPD) Substance Use: Yes (CAN[place]BIS) Allergies-Medications (Allergen,Severity, Reaction): Coded Allergies: codeine (Verified Adverse Reaction, Severe, Nausea, dizziness, SOB, ) Uncoded Allergies: PYRETHRIN (Allergy, Severe, Anaphylaxis, 05/10/17) Reported Meds & Prescriptions Reported Meds & Active Scripts Active Prednisone 20 Mg Tab 60 Mg PO DAILY 5 Days Review of Systems Except as stated in HPI: all other systems reviewed are Neg Physical Exam Narrative GENERAL: Well-developed well-nourished flushed face, having intermittent coughing spasms with dry nonproductive cough. SKIN: Focused skin assessment warm/dry. HEAD: Atraumatic. Normocephalic. EYES: Pupils equal and round. No scleral icterus. No injection or drainage. ENT: No nasal bleeding or discharge. Mucous membranes pink and moist. Oropharynx clear, airway widely patent. No edema seen. Mildly erythematous oropharynx. NECK: Trachea midline. No JVD. CARDIOVASCULAR: Regular rate and rhythm. No murmur appreciated. RESPIRATORY: No accessory muscle use. Clear to auscultation. Breath sounds equal bilaterally. GASTROINTESTINAL: Abdomen soft, non-tender, nondistended. Hepatic and splenic margins not palpable. MUSCULOSKELETAL: No obvious deformities. No clubbing. No cyanosis. No edema. NEUROLOGICAL: Awake and alert. No obvious cranial nerve deficits. Motor grossly within normal limits. Normal speech. PSYCHIATRIC: Appropriate mood and affect; insight and judgment normal. Data Data Last Documented VS Vital Signs Date Time Temp Pulse Resp B/P (MAP) Pulse Ox O2 Delivery O2 Flow Rate FiO2 05/10/17 20:03 66 18 99 05/10/17 19:14 Room Air 05/10/17 18:20 98.4 Orders Orders Ecg Monitoring (05/10/17 17:25) Iv Access Insert/Monitor (05/10/17 17:25) Oximetry (05/10/17 17:25) Diphenhydramine Inj (Benadryl Inj) (05/10/17 17:30) Methylprednisolone So Succ Inj (Solumedr (05/10/17 17:30) Albuterol-Ipratropium Neb (Duoneb Neb) (05/10/17 17:30) Sodium Chlor 0.9% 1000 Ml Inj (Ns 1000 M (05/10/17 17:25) Sodium Chloride 0.9% Flush (Ns Flush) (05/10/17 17:30) Lidocaine Pf 2% Neb (Lidocaine Pf 2% Neb (05/10/17 17:30) Diphenhydramine Inj (Benadryl Inj) (05/10/17 17:45) Chest, Single Ap (05/10/17 ) Ondansetron Inj (Zofran Inj) (05/10/17 19:15) MDM Medical Decision Making Medical Screen Exam Complete: Yes Emergency Medical Condition: Yes Differential Diagnosis URI, allergic reaction, chemical exposure. Narrative Course Patient roomed emergency department, after Benadryl and fluids and Solu-Medrol she is feeling much better. Had a little nausea was given 8 of Zofran. No emesis in emerged from. Improve dramatically over the 3 hours observation time in the emergency department the flushed face had completely resolved and the erythema on her throat had resolved as well. Chest x-ray negative. Likely chemical upper airway irritation anaphylaxis has been excluded. She is stable for discharge at this time. Diagnosis Primary Impression: Cough Additional Impression: Allergic reaction to chemical substance Med/Other Pt SpecificInfo: Prescription(s) given Scripts Prednisone (Prednisone) 20 Mg Tab 60 MG PO DAILY for 5 Days, #15 TAB 0 Refills Prov: Zeferino Hernandez MD 05/10/17 Disposition: 01 DISCHARGE HOME Condition: Stable Zeferino Hernandez MD May 10, 2017 17:36
[2017-05-10 17:40] VITALS: BP 133/87; PULSE 115; RESP 28; TEMP 98.4; O2SAT 100
[2017-05-10] MEDS: RESP: ALBUTEROL 2.5 MG/IPRATROPIUM 0.5 MG NEB (SCH) INH (17:43)
[2017-05-10] MEDS ORDERED: diphenhydrAMINE HCL 50 MG/ML VIAL IV PUSH ONE (17:45)
[2017-05-10 18:20] VITALS: BP 108/73; PULSE 66; RESP 22; TEMP 98.4; O2SAT 98
--- NOTE | 2017-05-10 18:31 | RADRPT ---
EXAM DATE/TIME: 05/10/2017 18:05 [facility] COMPARISON: CHEST SINGLE AP, May 02, 2017, 18:20. INDICATIONS : Productive cough and short of breath. MEDICAL HISTORY : SVT. Ovarian cysts rupture. Depression. Pevoius suicide attempt. SURGICAL HISTORY : None. ENCOUNTER: Initial ACUITY: 1 day PAIN SCORE: 0/10 LOCATION: Bilateral chest FINDINGS: A single view of the chest demonstrates the lungs to be symmetrically aerated without evidence of mas s, infiltrate or effusion. The cardiomediastinal contours are unremarkable. Osseous structures are intact. CONCLUSION: Normal one view chest x-ray. Henok Andersen MD on May 10, 2017 at 18:29 Board Certified Radiologist. This report was verified electronically.
[2017-05-10 19:14] VITALS: BP 110/72; PULSE 66; RESP 18; O2SAT 99
[2017-05-10] MEDS ORDERED: ONDANSETRON HCL 4 MG/2 ML VIAL IV PUSH ONE (19:15)
[2017-05-10] MEDS ORDERED: PRED20 PO (19:39)
== END 2017-05-10 20:04 | disposition home or self-care (01) ==
LOC: PHED 17:16
DX: R05 Cough (principal); T78.49XA Other allergy, initial encounter; R06.02 Shortness of breath; X58.XXXA Exposure to other specified factors, initial encounter; Z72.0 Tobacco use
CPT/HCPCS: 71010; 94664; 96361; 96374; 96375; 99284; J1200; J2405; J2930; J7030

== ENCOUNTER 2017-06-13 19:15 | Emergency (ER) | payer OTHER ==
[~2017-06-13 19:15] MED LIST changes: -AZIT250T3 PO; -BENZ100 PO; -FLUT1SPR5 EACH NARE; +PRED20 PO
[2017-06-13 19:17] VITALS: BP 141/85; PULSE 98; RESP 18; TEMP 98.4; O2SAT 99
[2017-06-13] MEDS ORDERED: ETON1IMP I-DERMAL (19:39)
--- NOTE | 2017-06-13 19:56 | PD ---
HPI Chief Complaint: Skin Problem Time Seen by Provider: 19:45 Travel History International Travel<30 days: No Contact w/Intl Traveler<30days: No Traveled to known affect area: No History of Present Illness HPI 22-year-old white female presents to emergency department complains of a pruritic rash on her face after eating a week tortilla. She states that she has had problems eating wheat tortillas in the past. She had one last week which caused diarrhea. She states today in addition to having the rash on her face she has felt nauseous and had some vomiting followed by some diarrhea. She denies any shortness of breath or wheezing. No glossal edema or difficulty swallowing. No other rashes on her body. She does have a history of rosacea but feels this is much worse. Symptoms are moderate. Pruritic in nature. No alleviating factors. PFSH Past Medical History Narrative Medical SVT, diverticulitis, seizures versus tics Heart Rhythm Problems: Yes (SVT) Cancer: No Cardiovascular Problems: Yes (SVT) Diabetes: No Diminished Hearing: No Diverticulitis: Yes Headaches: No Psychiatric: Yes (Depression) Seizures: Yes Tetanus Vaccination: > 5 Years ?: Not LMP: 06/06/17 : 1 Para: 0 Miscarriage: 1 : 0 Ovarian Cysts: Yes (Ruptured ) Past Surgical History Surgical History: No Previous Surgery Social History Alcohol Use: Yes (Occ.) Tobacco Use: Yes (2 PPD) Substance Use: Yes (Marijuana ) Allergies-Medications (Allergen,Severity, Reaction): Coded Allergies: codeine (Verified Adverse Reaction, Severe, Nausea, dizziness, SOB, ) Uncoded Allergies: PYRETHRIN (Allergy, Severe, Anaphylaxis, 05/10/17) Reported Meds & Prescriptions Reported Meds & Active Scripts Active Reported Nexplanon Implant (Etonogestrel Implant) 68 Mg Imp 68 Mg I-DERMAL ONCE Review of Systems General / Constitutional: No: Fever Eyes: No: Visual changes HENT: No: Headaches Cardiovascular: No: Chest Pain or Discomfort Respiratory: No: Cough, Shortness of Breath, Wheezing Gastrointestinal: Positive: Nausea, Vomiting, Diarrhea, No: Abdominal Pain Genitourinary: No: Dysuria Musculoskeletal: No: Pain Skin: Positive Rash, Positive Itching, Positive Change in Pigmentation Neurologic: No: Weakness Psychiatric: No: Depression Endocrine: No: Polydipsia Hematologic/Lymphatic: No: Easy Bruising Physical Exam Narrative GENERAL: Well-developed, well-nourished in no acute distress. Nontoxic appearing. HEAD: Normocephalic, atraumatic. Patient has some mild erythema and a mask distribution of the face. EYES: Pupils equal round and reactive. Extraocular motions intact. No scleral icterus. No injection or drainage. ENT: TMs clear without erythema. The external auditory canals clear. Nose: clear . Posterior pharynx is pink and moist. No tonsillar edema or exudate. Uvula midline. Airway patent. NECK: Trachea midline.Supple, nontender, moves head freely. No central bony tenderness or spasm. CARDIOVASCULAR: Regular rate and rhythm without murmurs, gallops, or rubs. RESPIRATORY: Clear to auscultation. Breath sounds equal bilaterally. No wheezes , rales, or rhonchi. GASTROINTESTINAL: Abdomen soft, non-tender, nondistended. No hepato-splenomegaly , or palpable masses. No guarding. EXTREMITIES: No clubbing, cyanosis, or edema. No joint tenderness, effusion, or edema noted. BACK: Nontender without deformity or crepitance. No flank tenderness. Data Data Last Documented VS Vital Signs Date Time Temp Pulse Resp B/P (MAP) Pulse Ox O2 Delivery O2 Flow Rate FiO2 06/13/17 19:17 98.4 98 18 141/85 (103) 99 Room Air Orders Orders Dexamethasone Inj (Decadron Inj) (06/13/17 20:00) Diphenhydramine Inj (Benadryl Inj) (06/13/17 20:00) [facility] Medical Decision Making Medical Screen Exam Complete: Yes Emergency Medical Condition: Yes Medical Record Reviewed: Yes Differential Diagnosis MDM: High Differential diagnoses: Abscess, folliculitis, cellulitis, lymphangitis, abrasion, contact dermatitis, allergic reaction Narrative Course Patient is given Decadron 10 mg IM and Benadryl 50 mg IM. Patient is advised to avoid tortillas in the future. She is also to perform a diary of all exposures. She follow-up with her primary care doctor in the next 24-48. Diagnosis Primary Impression: allergic reaction Patient Instructions: General Instructions Additional Instructions: Rest. Take 50 mg of Benadryl every 6 hours as needed for itching and rash. Use 1% hydrocortisone cream on her face 3 times daily until the rash resolves. Do not use more than one week. Avoid wheat tortillas. Perform a diary of all exposures. Follow-up with a primary care doctor in the next 1-2 days. Return to the ER if any problems. Med/Other Pt SpecificInfo: No Meds Exist/No RX given Disposition: 01 DISCHARGE HOME Condition: Stable Joe Pemberton Jun 13, 2017 19:56
[2017-06-13] MEDS ORDERED: DEXAMETHASONE SOD PHOS 20 MG/5 ML VIAL IM ONE (20:00)
[2017-06-13] MEDS ORDERED: diphenhydrAMINE HCL 50 MG/ML VIAL IM ONE (20:00)
== END 2017-06-13 20:18 | disposition home or self-care (01) ==
LOC: NEPK 19:15
DX: T78.40XA Allergy, unspecified, initial encounter (principal); R21 Rash and other nonspecific skin eruption; R19.7 Diarrhea, unspecified; R11.2 Nausea with vomiting, unspecified; I47.1 Supraventricular tachycardia; K57.92 Diverticulitis of intestine, part unspecified, without perforation or abscess without bleeding; R56.9 Unspecified convulsions; F32.9 Major depressive disorder, single episode, unspecified; F17.200 Nicotine dependence, unspecified, uncomplicated
CPT/HCPCS: 96372; 99284; J1100; J1200

== ENCOUNTER 2017-09-28 10:00 | Emergency (ER) | payer SELFPAY ==
[~2017-09-28] VITALS: Ht 154.9 cm; Wt 72.5 kg
[~2017-09-28 10:00] MED LIST changes: +ETON1IMP I-DERMAL; -PRED20 PO
[2017-09-28 10:01] VITALS: BP 132/64; PULSE 103; RESP 16; TEMP 98.6; O2SAT 96
[2017-09-28] MEDS ORDERED: IBUPROFEN 600 MG TAB PO ONE (11:00)
--- NOTE | 2017-09-28 11:02 | PD ---
HPI Chief Complaint: Fall Time Seen by Provider: 10:46 Travel History International Travel<30 days: No Contact w/Intl Traveler<30days: No Traveled to known affect area: No History of Present Illness HPI This is a 22-year-old female who presents to the emergency department having fallen down 7 stairs yesterday landing on her buttock and back area. She did not hit her head. She comes in today with increasing lower back pain, constant , moderate severity, worse with walking and moving, improved with rest with no associated numbness or weakness. She also has some pain when she takes a deep breath. She says the pain is gotten significantly worse since yesterday. PFSH Past Medical History Heart Rhythm Problems: Yes (SVT) Cancer: No Cardiovascular Problems: Yes (SVT) Diabetes: No Diminished Hearing: No Diverticulitis: Yes Gastrointestinal Disorders: Yes (CELIAC) Headaches: No Psychiatric: Yes (Depression) Seizures: Yes Tetanus Vaccination: Unknown Influenza Vaccination: Yes ?: Not LMP: CURRENT : 1 Para: 0 Miscarriage: 1 : 0 Ovarian Cysts: Yes (Ruptured ) Past Surgical History Surgical History: No Previous Surgery Social History Alcohol Use: Yes (Occ.) Tobacco Use: Yes (1/2 PPD) Substance Use: No Allergies-Medications (Allergen,Severity, Reaction): Coded Allergies: codeine (Verified Adverse Reaction, Severe, Nausea, dizziness, SOB, 09/28/17 ) Uncoded Allergies: PYRETHRIN (Allergy, Severe, Anaphylaxis, 05/10/17) Reported Meds & Prescriptions Reported Meds & Active Scripts Active Reported Nexplanon Implant (Etonogestrel Implant) 68 Mg Imp 68 Mg I-DERMAL ONCE Review of Systems Except as stated in HPI: all other systems reviewed are Neg Physical Exam Narrative GENERAL:Well appearing, no acute distress SKIN: Focused skin assessment warm and dry. HEAD: Atraumatic. Normocephalic. EYES: Pupils equal and round. No injection or drainage. ENT: Moist mucous membranes NECK: Trachea midline. CARDIOVASCULAR: Regular rate and rhythm. No murmur appreciated. RESPIRATORY: Clear to auscultation. Breath sounds equal bilaterally. GASTROINTESTINAL: Abdomen soft, non-tender, nondistended. MUSCULOSKELETAL: Tender to palpation over the lower lumbar spinous processes and tender to palpation over the left posterior rib cage. Able to ambulate without difficulty in the emergency department. NEUROLOGICAL: Awake and alert. No obvious cranial nerve deficits. Moving all extremities. PSYCHIATRIC: Appropriate mood and affect; insight and judgment normal. Data Data Last Documented VS Vital Signs Date Time Temp Pulse Resp B/P (MAP) Pulse Ox O2 Delivery O2 Flow Rate FiO2 09/28/17 10:39 17 Room Air 09/28/17 10:01 98.6 103 132/64 (86) 96 Orders Orders Chest, Single Ap (09/28/17 ) Spine, Lumbar - Ltd (Ap & Lat) (09/28/17 ) Ibuprofen (Motrin) (09/28/17 11:00) MDM Medical Decision Making Medical Screen Exam Complete: Yes Emergency Medical Condition: Yes Interpretation(s) Afebrile, mild tachycardia, normotensive Lumbar spine x-ray and chest x-ray with no acute process Differential Diagnosis Rib contusion, rib fracture, lumbar contusion, lumbar strain, vertebral fracture Narrative Course This is a 22-year-old female who presents the emergency department having had a fall downstairs. She has normal neurologic exam and appears very well. X-ray of the chest and L-spine were obtained which were reassuring. I suspect the patient suffers from a lumbar contusion. I think she can safely be discharged with anti-inflammatories Diagnosis Primary Impression: Lumbar contusion Qualified Codes: S30.0XXA - Contusion of lower back and pelvis, initial encounter Patient Instructions: General Instructions Additional Instructions: If you develop weakness of your legs, difficulty walking, numbness of your legs or your genital or rectal area, loss of your bowel or bladder, or difficulty urinating return to the emergency department immediately. Followup with your primary care physician in one week if your symptoms have not improved. Med/Other Pt SpecificInfo: Prescription(s) given Scripts Naproxen (Naproxen) 500 Mg Tab 500 MG PO BID Y for PAIN SCALE 4 TO 10, #20 TAB 0 Refills Prov: Toshia Laura MD 09/28/17 Disposition: 01 DISCHARGE HOME Condition: Stable Toshia Laura MD Sep 28, 2017 11:02
--- NOTE | 2017-09-28 11:45 | RADRPT ---
EXAM DATE/TIME: 09/28/2017 11:23 [facility] COMPARISON: No previous studies available for comparison. INDICATIONS : Lower back pain after falling down stairs. MEDICAL HISTORY : None. SURGICAL HISTORY : None. ENCOUNTER: Initial ACUITY: 2 days PAIN SCORE: 8/10 LOCATION: lumbar FINDINGS: Two view examination was performed. There are five non-rib bearing vertebral bodies. The vertebral bodies are in normal alignment without evidence of subluxation or scoliosis. The disc spaces are reji ntained. The pedicles are intact. Bony mineralization is normal. No fracture is identified. CONCLUSION: Negative for an acute process. Ibrahima Shukla MD FACR on September 28, 2017 at 11:43 Board Certified Radiologist. This report was verified electronically.
--- NOTE | 2017-09-28 11:50 | RADRPT ---
EXAM DATE/TIME: 09/28/2017 11:20 [facility] COMPARISON: CHEST SINGLE AP, May 10, 2017, 18:05. INDICATIONS : Shortness of breath after falling down stairs. MEDICAL HISTORY : None. SURGICAL HISTORY : None. ENCOUNTER: Initial ACUITY: 2 days PAIN SCORE: 8/10 LOCATION: Bilateral chest FINDINGS: A single view of the chest demonstrates the lungs to be symmetrically aerated without evidence of mas s, infiltrate or effusion. The cardiomediastinal contours are unremarkable. Osseous structures are intact. CONCLUSION: No acute disease. Zeferino Dunlap MD on September 28, 2017 at 11:47 Board Certified Radiologist. This report was verified electronically.
[2017-09-28] MEDS ORDERED: NAPR500T2 PO (11:57)
[2017-09-28 12:11] VITALS: BP 99/64
== END 2017-09-28 12:12 | disposition home or self-care (01) ==
LOC: NEPD 10:00
DX: S30.0XXA Contusion of lower back and pelvis, initial encounter (principal); W10.9XXA Fall (on) (from) unspecified stairs and steps, initial encounter; F32.9 Major depressive disorder, single episode, unspecified; I47.1 Supraventricular tachycardia; F17.200 Nicotine dependence, unspecified, uncomplicated
CPT/HCPCS: 71045; 72100; 99284

== ENCOUNTER 2017-12-15 20:12 | Emergency (ER) | payer SELFPAY ==
[~2017-12-15] VITALS: Ht 154.9 cm; Wt 81.4 kg
[~2017-12-15 20:12] MED LIST changes: +NAPR500T2 PO
[2017-12-15 20:17] VITALS: BP 115/57; PULSE 82; RESP 18; TEMP 98.6; O2SAT 100
[2017-12-15] MEDS ORDERED: TETANUS/DIPHTHERIA TOXOID ADULT 0.5 ML VIAL IM ONE (20:30)
--- NOTE | 2017-12-15 20:32 | PD ---
HPI Chief Complaint: Skin Problem Time Seen by Provider: 20:24 Travel History International Travel<30 days: No Contact w/Intl Traveler<30days: No Traveled to known affect area: No History of Present Illness HPI 22-year-old female presents to the emergency department for tetanus vaccination after she states she stepped on a bari nail just prior to arrival. Patient states she was wearing a flip-flop. She states that the pain now barely punctured her plantar foot. She states it was bleeding afterwards. She cleaned it well. She states her tetanus immunization is not up-to-date. Patient has no pain with keeping the foot still. Ambulation will exacerbate pain. No other symptoms or complaints. PFSH Past Medical History Heart Rhythm Problems: Yes (SVT) Cancer: No Cardiovascular Problems: Yes (SVT) Diabetes: No Diminished Hearing: No Diverticulitis: Yes Gastrointestinal Disorders: Yes (CELIAC) Headaches: No Psychiatric: Yes (Depression) Seizures: Yes ?: Not LMP: 12/15/17 : 1 Para: 0 Miscarriage: 1 : 0 Ovarian Cysts: Yes (Ruptured ) Social History Alcohol Use: Yes (Occ.) Tobacco Use: Yes (/2 PPD) Substance Use: No Allergies-Medications (Allergen,Severity, Reaction): Coded Allergies: codeine (Verified Adverse Reaction, Severe, Nausea, dizziness, SOB, 09/28/17 ) Uncoded Allergies: PYRETHRIN (Allergy, Severe, Anaphylaxis, 05/10/17) Reported Meds & Prescriptions Reported Meds & Active Scripts Active Naproxen 500 Mg Tab 500 Mg PO BID PRN Reported Nexplanon Implant (Etonogestrel Implant) 68 Mg Imp 68 Mg I-DERMAL ONCE Review of Systems Except as stated in HPI: all other systems reviewed are Neg Physical Exam Narrative GENERAL: Well-nourished, well-developed female patient, afebrile. SKIN: Focused skin assessment warm/dry. No visible puncture wound to left plantar foot. No bleeding. HEAD: Normocephalic. Atraumatic EYES: No scleral icterus. No injection or drainage. NECK: Supple, trachea midline. No JVD or lymphadenopathy. RESPIRATORY: No accessory muscle use. MUSCULOSKELETAL: No cyanosis, or edema. Data Data Last Documented VS Vital Signs Date Time Temp Pulse Resp B/P (MAP) Pulse Ox O2 Delivery O2 Flow Rate FiO2 12/15/17 20:17 98.6 82 18 115/57 (76) 100 Orders Orders Tetanus/Diphtheria Tox Adult (Tetanus/Di (12/15/17 20:30) MDM Medical Decision Making Medical Screen Exam Complete: Yes Emergency Medical Condition: Yes Medical Record Reviewed: Yes Differential Diagnosis Puncture wound versus cellulitis versus medical clearance Narrative Course 22-year-old female presents to the emergency department for tetanus immunization after she stepped on nail. There is no visible puncture wound on exam. No evidence of foreign body. Tetanus immunization is updated. She is instructed to monitor the area and return for any evidence of infection. Diagnosis Primary Impression: Puncture wound Referrals: Primary Care Physician call for appointment Patient Instructions: General Instructions, Puncture Wound (ED) Additional Instructions: Clean twice daily with soap and water and monitor for any evidence of infection. Follow-up with a primary care physician. Return to the emergency department for any acute worsening of symptoms. Med/Other Pt SpecificInfo: No Change to Meds Disposition: 01 DISCHARGE HOME Condition: Stable Sharmila Baltazar Dec 15, 2017 20:32
== END 2017-12-15 20:40 | disposition home or self-care (01) ==
LOC: PHEFT 20:12
DX: S91.332A Puncture wound without foreign body, left foot, initial encounter (principal); W45.0XXA Nail entering through skin, initial encounter; W22.8XXA Striking against or struck by other objects, initial encounter; I47.1 Supraventricular tachycardia; F32.9 Major depressive disorder, single episode, unspecified; F17.200 Nicotine dependence, unspecified, uncomplicated; Z23 Encounter for immunization
CPT/HCPCS: 90471; 90714

== ENCOUNTER 2017-12-19 12:04 | Emergency (ER) | payer OTHER ==
[~2017-12-19] VITALS: Ht 154.9 cm; Wt 75.0 kg
[~2017-12-19 12:04] MED LIST changes: -NAPR500T2 PO
[2017-12-19 12:11] VITALS: BP 150/74; PULSE 100; RESP 18; TEMP 98.6; O2SAT 98
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
[2017-12-19] MEDS ORDERED: MEDR4PAK PO (13:44)
== END 2017-12-19 14:20 | disposition home or self-care (01) ==
LOC: NEPK 12:04
DX: T59.811A Toxic effect of smoke, accidental (unintentional), initial encounter (principal); J70.5 Respiratory conditions due to smoke inhalation; F17.200 Nicotine dependence, unspecified, uncomplicated; R05 Cough
CPT/HCPCS: 71046; 99283